=== PATIENT | female | born 1960 | race Caucasian/White ===

== ENCOUNTER → 2018-11-29 10:05 | Outpatient (CLI) | payer OTHER, MEDICAID, SELFPAY ==
--- NOTE | 2018-11-29 | DI.US.S_ITS ---
PROCEDURE: US ABDOMEN COMPLETE INDICATIONS: RIGHT LOWER QUADRANT PAIN TECHNIQUE: Real-time scanning was performed of the abdominal and retroperitoneal organs, with image documentation. COMPARISON: None. FINDINGS: Liver: Liver is normal in size and homogeneous in echotexture. Gallbladder: The gallbladder appears normal Biliary ducts: Intrahepatic bile ducts are non-dilated. Extrahepatic bile duct caliber measures 5.0 mm. Normal is 6-7 mm or less in diameter, or 10 mm or less post-cholecystectomy. Pancreas: Visualized portions of the pancreas are sonographically normal. Spleen: Spleen is normal in size and homogeneous in echotexture. Kidneys: Kidneys are normal in size and echotexture. Right kidney measures 11.3 cm long; left kidney measures 10.8 cm long. No hydronephrosis or nephrolithiasis. No solid masses. Aorta: Visualized aorta is normal in caliber at less than 3 cm. Iliacs: Proximal common iliac arteries are normal in caliber at less than 2.5 cm. IVC: Intrahepatic inferior vena cava is patent. Miscellaneous: No free abdominal fluid. IMPRESSION: Normal abdominal ultrasound, source of right lower quadrant pain is not identified. Dictated by: Jeremias Delong M.D. on 11/29/2018 at 13:03 Approved by: Jeremias Delong M.D. on 11/29/2018 at 13:11
--- NOTE | 2018-11-29 | DI.US.S_ITS ---
PROCEDURE: US PELVIC COMPLETE INDICATIONS: RIGHT LOWER QUADRANT PAIN TECHNIQUE: Real-time scanning was performed of the pelvic organs, with image documentation. Additional endovaginal scanning was necessary due to incomplete visualization of the adnexal and endometrial structures by transabdominal scanning. COMPARISON: None. FINDINGS: Transabdominal scanning: Limited scanning through the kidneys shows no hydronephrosis. No pathologic free abdominal or pelvic fluid. There is a midline anterior intramural 1.1 cm fibroid and a right-sided posterior intramural 1.7 cm fibroid. A midline anterior intramural 1.2 cm fibroid also is seen Endovaginal scanning: Uterus: Uterus is normal in size at 2.8 x 3.7 x 7.1 cm. The endometrium measures 4 mm in combined thickness. Ovaries: Not visualized despite both transabdominal and transvaginal imaging. Overlying bowel gas as the apparent cause. IMPRESSION: Small uterine fibroids, now endometrial lining abnormality. Ovaries not visualized due to bowel gas. No acute disease is found and the source of right lower quadrant pain is not seen. A normal or abnormal appendix could not be identified. Dictated by: Jeremias Delong M.D. on 11/29/2018 at 14:38 Approved by: Jeremias Delong M.D. on 11/29/2018 at 14:40
== END ==
PROVIDERS: PCP Family Medicine; Visit Provider Nurse Practitioner Family
DX: R10.31 Right lower quadrant pain (principal); D25.1 Intramural leiomyoma of uterus
CPT/HCPCS: 76700; 76830; 76856